=== PATIENT | male | born 2000 | race Caucasian/White ===

== ENCOUNTER → 2024-05-07 | Day surgery (SDC) | payer MEDICAID ==
[~2024-05-07] MED LIST: Dexamethasone 4 MG/ML SDV ONE; Glycopyrrolate 0.2 MG/ML 5 ML MDV ONE; Neostigmine Methylsulfate 10 MG/10 ML MDV ONE; Ondansetron 4 MG/2 ML SDV ONE; Propofol 200 MG/20 ML SDV ONE; Rocuronium 50 MG/5 ML Vial ONE; fentaNYL 250 MCG/5 ML SDV ONE
[2024-05-07] MEDS: Sodium Chloride 0.9% 10 ML Syringe FLUSH PRN (14:20)
[2024-05-07 14:21] LABS: BASOPHILS ABSOLUTE AUTO 0.06 K/uL (0.00-0.10); BASOPHILS PERCENT AUTO 0.2 % (0.1-1.3); HEMATOCRIT 43.7 % (38.4-49.7); HEMOGLOBIN 14.8 g/dL (12.9-16.9); IMMATURE GRAN ABSOLUTE AUTO 0.12 K/uL (0.00-0.23); IMMATURE GRAN PERCENT AUTO 0.5 % (0.0-0.7); LYMPHOCYTES ABSOLUTE AUTO 1.17 K/uL (0.8-3.3); LYMPHOCYTES PERCENT AUTO 4.4 % (11.4-47.7); MEAN CORPUSCULAR HEMOGLOBIN 27.8 pg (31.6-35.5); MEAN CORPUSCULAR HGB CONC 33.9 g/dL (31.6-35.5); MONOCYTES ABSOLUTE AUTO 0.73 K/uL (0.20-0.90); MONOCYTES PERCENT AUTO 2.8 % (3.3-12.6); NEUTROPHILS ABSOLUTE AUTO 24.44 K/uL (1.0-7.6); NEUTROPHILS PERCENT AUTO 92.1 % (40.0-78.1); PLATELET COUNT,PLT 447 K/uL (130-375); RED BLOOD CELL COUNT 5.33 M/uL (4.14-5.76); WHITE BLOOD CELL COUNT,WBC 26.5 K/uL (3.2-11.0)
[2024-05-07] MEDS: fentaNYL 100 MCG/2 ML SDV IVPUSH ONE (14:22)
[2024-05-07] MEDS: Ondansetron 4 MG/2 ML SDV IVPUSH ONE (14:22)
[2024-05-07 14:23] LABS: EOSINOPHILS ABSOLUTE AUTO 0.01 K/uL (0.00-0.40)
[2024-05-07 14:43] LABS: ALANINE AMINOTRANSFERASE,ALT 30 U/L (12-78); ALBUMIN 4.2 g/dL (3.4-5.0); ALKALINE PHOSPHATASE 137 U/L (46-116); ASPARTATE AMNIOTRANSFERASE,AST 10 U/L (15-37); BILIRUBIN TOTAL 0.4 mg/dL (0.2-1.0); BLOOD UREA NITROGEN,BUN 13 mg/dL (7-18); C-REACTIVE PROTEIN 1.52 mg/dL (<0.50); CARBON DIOXIDE,CO2 23 mmol/L (21-32); CHLORIDE,CL 102 mmol/L (100-108); CREATININE 0.9 mg/dL (0.8-1.3); EST CRCL DRUG DOSING (CG) 146.73 mL/min; ESTIMATED GFR 125 mL/min (>60); GLUCOSE RANDOM 165 mg/dL (74-106); POTASSIUM,K 3.9 mmol/L (3.6-5.2); PROTEIN TOTAL,TP 8.3 g/dL (6.4-8.2); SODIUM,NA 139 mmol/L (140-148)
[2024-05-07 14:44] LABS: ANION GAP 17.9 mmol/L (5.0-14.0)
[2024-05-07] MEDS: Iopamidol 612 MG/ML 100 ML Bottle IV SCH (15:34)
[2024-05-07] MEDS: Sodium Chloride 0.9% 60 ML IV SCH (15:34)
[2024-05-07] MEDS: Sodium Chloride 0.9% 500 ML IV ONE ×2 (15:42→16:40)
[2024-05-07] MEDS: Ampicillin/Sulbactam Na 3 GM in Sodium Chloride 0.9% 100 ML IV ONE (15:43)
[2024-05-07] MEDS: Bupivacaine 0.25%/EPINEPHrine 1:200,000 30 ML SDV ONE (19:30)
== END ==
LOC: JP.ED 13:37 → JP.SDS 16:25
PROVIDERS: ATTEND Surgery
DX: K35.80 Unspecified acute appendicitis (principal)
CPT/HCPCS: 00840; 36415; 44970; 51702; 74177; 80053; 83605; 83690; 84145; 85025; 86140; 87040; 88304; 96361; 96365; 96375; 99204; 99284; 99285; J0295; J1100; J1596; J2405; J2704; J2710; J3010; J3490; J7040; Q9967